=== PATIENT | female | born 2000 | race Caucasian/White ===

== ENCOUNTER 2022-06-24 19:28 | Emergency (ER) | payer BC ==
[2022-06-24 20:22] LABS: #Eosinphils 0.1 10x3/uL (0.0-0.5); #Monocytes 0.8 10x3/uL (0.0-1.1); #Neutrophils 12.5 10x3/uL (1.5-8.4); %Basophils 0.3 % (0.0-2.0); %Eosinophils 0.5 % (0.0-6.0); %Lymphocytes 4.9 % (18.0-47.0); %Monocytes 5.6 % (0.0-10.0); %Neutrophils 88.2 % (40.0-75.0); Hemoglobin 13.7 g/dL (12.0-15.5); Mean Corpuscular HGB CONC 33.7 g/dL (32.0-36.0); Mean Corpuscular Hemoglobin 29.2 pg (27.0-33.0); Mean Corpuscular Volume 86.8 fl (81.6-98.3); Mean Platelet Volume 10.3 fl (7.4-10.4); Platelet Count 210 10x3/uL (150-450); RBC Distribution Width 12.2 % (11.5-14.5); Red Blood Cell (RBC) Count 4.69 10x6/uL (3.90-5.03); White Blood Cell (WBC) Count 14.2 10x3/uL (3.5-10.5)
[2022-06-24 20:23] LABS: Bilirubin Neg (Negative); Blood, Urine 50 (Negative); Clarity Slightly Cloudy (Clear); Glucose, Urine (Dipstick) Normal (Negative); Ketone, Urine 50 mg/dL (Negative); Leukocyte 500 (Negative); Nitrite Positive (Negative); Protein, Urine (Dipstick) 30 mg/dl (Neg-Trace); Specific Gravity, Urine 1.005 (1.005-1.030); Urobilinogen Normal mg/dL (Less than 2); pH, Urine 6.5 (5.0-9.0)
[2022-06-24 20:24] LABS: Pregnancy Test - Urine (BHCG) Negative (Negative); Pregu Control Background? CLEAR/WHITE (CLR/WHITE); Pregu Control Bar Appear? YES (CONTROL BAR)
[2022-06-24 20:28] LABS: Specific Gravity 1.005 (1.002-1.036)
[2022-06-24] MEDS ORDERED: Ketorolac Tromethamine 30 MG/ML VIAL ONE (20:30)
[2022-06-24 20:41] LABS: ALT (SGPT) 17 U/L (8-55); AST (SGOT) 19 U/L (5-34); Albumin 4.4 g/dL (3.5-5.0); Alkaline Phosphatase 54 U/L (40-110); Anion Gap 14 mmol/L (10-20); BUN (Urea Nitrogen) 11 mg/dL (7.0-18.7); Calc. Creatinine Clearance 0 mL/min (70-130); Calcium 9.6 mg/dL (7.8-10.44); Carbon Dioxide 23 mmol/L (22-29); Chloride 103 mmol/L (98-107); Estimated GFR 108; Glucose 103 mg/dL (70-105); Magnesium 1.6 mg/dL (1.6-2.6); Potassium 3.2 mmol/L (3.5-5.1); Protein, Total 7.4 g/dL (6.0-8.3); Sodium 137 mmol/L (136-145)
[2022-06-24 20:44] LABS: RBC/HPF 0-3 HPF (0-3); Squamous Epithelial 0-3 HPF (0-3)
[2022-06-24 20:46] LABS: Bacteria/HPF 1+ HPF (None Seen)
== END 2022-06-24 22:22 | disposition home or self-care (01) ==
LOC: CSHERS 19:28
DX: N10 Acute pyelonephritis (principal)
CPT/HCPCS: 36415; 74176; 80053; 81003; 81015; 81025; 83605; 83735; 85025; 87040; 87086; 96374; J1885